=== PATIENT | female | born 1990 | race Caucasian/White ===

== ENCOUNTER 2023-09-30 18:40 | Emergency (ER) | payer OTHER ==
[~2023-09-30] VITALS: Ht 167.6 cm; Wt 72.6 kg
[2023-09-30 19:11] VITALS: BP 148/86; PULSE 89; RESP 18; TEMP 97; O2SAT 98
[2023-09-30] MEDS ORDERED: LIDOCAINE 5% 1 EA PATCH TP ONE (20:55)
[2023-09-30] MEDS ORDERED: KETOROLAC 30 MG/ML VIAL IM ONE (20:55)
[2023-09-30] MEDS ORDERED: IBUP-2213 PO (20:56)
[2023-09-30] MEDS ORDERED: LID5T TP (20:56)
== END 2023-09-30 21:18 | disposition home or self-care (01) ==
LOC: MED 18:40
DX: S43.401A Unspecified sprain of right shoulder joint, initial encounter (principal); M75.21 Bicipital tendinitis, right shoulder; E11.9 Type 2 diabetes mellitus without complications; Z79.899 Other long term (current) drug therapy; Z79.1 Long term (current) use of non-steroidal anti-inflammatories (NSAID); X58.XXXA Exposure to other specified factors, initial encounter; Y92.89 Other specified places as the place of occurrence of the external cause; Y93.89 Activity, other specified; Y99.8 Other external cause status
CPT/HCPCS: 73030; 96372; 99283; J1885